=== PATIENT | female | born 1990 | race Caucasian/White ===

== ENCOUNTER 2020-07-02 19:23 | Emergency (ER) | payer OTHER, SELFPAY ==
[2020-07-02 19:25] VITALS: BP 132/93; PULSE 89; RESP 16; TEMP 36.3; O2SAT 100
--- NOTE | 2020-07-02 20:32 | ED.EXTPRO ---
HPI - Extremity Problem General Chief complaint: Extremity Problem,Nontraumatic Stated complaint: feet swelling Time Seen by Provider: 07/02/20 19:31 Source: patient Mode of arrival: ambulatory Limitations: no limitations History of Present Illness HPI Narrative: Patient is a 29-year-old female who presents with swelling to the bilateral feet patient noticed the swelling in the last 24 hours notes over the weekend she had been drinking and partying patient on arrival to emergency department denies any pain. Patient denies recent illness similar occurrence or URI symptoms or dyspnea. Patient on arrival to emergency department resting comfortably in the room. Related Data Allergies Allergy/AdvReac Type Severity Reaction Status Date / Time acetaminophen Allergy Intermediate rash Verified 09/22/19 11:49 amoxicillin [From Amoxil] Allergy Intermediate Rash Verified 09/22/19 11:49 hydrocodone Allergy Intermediate rash Verified 09/22/19 11:49 codeine Allergy Mild Rash Verified 09/22/19 11:49 Review of Systems Review of Systems: All systems reviewed & are unremarkable except as noted in HPI and below PMFSH Past Medical History Medical History demise Gestational diabetes MRSA (methicillin resistant staph aureus) culture positive Polyhydramnios hemorrhage Preeclampsia labor Torn ACL UTI (urinary tract infection) Social History Social History Smoking status: Former smoker Alcohol intake: current Substance use: unknown Additional occupation/education comments: AR MANAGER at [employer] Gender identity (if verbalized by the patient): Female Spiritual care concerns: No Exam Narrative: Exam Narrative: GENERAL: Well-appearing, well-nourished, and in no acute distress. HEAD: Normocephalic, atraumatic. EYES: PERRLA and EOMI. ENT: Nares clear, no rhinorrhea or epistaxis. Mucous membranes moist. NECK: Supple. No adenopathy or masses. No carotid bruits or JVD CHEST: Clear to auscultation. No respiratory distress. No wheezes rales or rhonchi HEART: Regular rate and rhythm. No murmur heard. Normal peripheral pulses. EXTREMITIES: Normal range of motion. 1+ edema to the dorsal surface of the bilateral feet no other swelling no tenderness of the extremities SKIN: Warm, dry, no rash. NEURO: No focal deficits. Alert and oriented x3. Neurovascularly intact. Capillary refill less than 2 seconds PSYCH: Normal mood and affect. Course Course Emergency Course: Patient in the room in no distress aware of case findings treatment plan and diagnosis agreeing to follow-up as directed or to return if symptoms worsen or concerns Vital Signs Vital signs: Vital Signs Temperature 97.3 F L 07/02/20 19:25 Pulse Rate 89 07/02/20 19:25 Respiratory Rate 16 07/02/20 19:25 Blood Pressure 132/93 H 07/02/20 19:25 Pulse Oximetry 100 07/02/20 19:25 Temperature 97.3 F L 07/02/20 19:25 Pulse Rate 89 07/02/20 19:25 Respiratory Rate 16 07/02/20 19:25 Blood Pressure 132/93 H 07/02/20 19:25 Pulse Oximetry 100 07/02/20 19:25 MDM - Extremity (Nontraumatic) MDM Narrative Medical decision making narrative: Patients injury or pain is consistent with musculoskeletal etiology. No signs of neurological or vascular compromise on exam. Compartments and tisues are soft without signs of compartment syndrome. Pain is felt appropriate for further evaluation on an outpatient basis. Patient with likely dependent edema. Patient will follow with primary care for further evaluation Discharge Plan Discharge Clinical Impression: Bilateral edema of lower extremity Patient Disposition: Home, Self-Care Condition: Stable Instructions: Antibiotic Form, Leg Edema (ED) Additional Instructions: Follow up with your primary care provider within 1-2 days. Go to ER for shortness of breath, difficulty breath
[2020-07-02 21:25] VITALS: BP 122/70; PULSE 70; RESP 18; O2SAT 99
== END 2020-07-02 21:27 | disposition home or self-care (01) ==
PROVIDERS: Emergency Provider Emergency Medicine; PCP Nurse Practitioner Family
DX: R60.0 Localized edema (principal); Z86.14 Personal history of Methicillin resistant Staphylococcus aureus infection; Z87.440 Personal history of urinary (tract) infections; Z87.891 Personal history of nicotine dependence
CPT/HCPCS: 99283

== ENCOUNTER 2020-07-19 09:35 | Outpatient (CLI) | payer OTHER, SELFPAY ==
--- NOTE | 2020-07-19 | ECG_ITS ---
Measurements Intervals [place] Rate: 66 P: 23 FL: 166 QRS: 68 QRSD: 84 T: 49 QT: 400 QTc: 421 Interpretive Statements SINUS RHYTHM NORMAL ECG Electronically Signed On 07-19-2020 11:06:47 CDT by Imer Ontiveros D.O.
--- NOTE | ~2020-07-19 | XR_ITS ---
EXAMINATION: XR chest 2V 07/19/2020 11:13 INDICATION: Morbid obesity. Preop gastric bypass surgery. PROCEDURE: 2 view chest COMPARISON: Comparison to multiple prior studies sequentially, with oldest reviewed study dated 08/01. FINDINGS: The lungs are clear. The cardiomediastinal silhouette is within normal limits. There are no pleural effusions. There is no pneumothorax suspected. IMPRESSION: 1: NO ACUTE CARDIOPULMONARY DISEASE. Reviewed, dictated and finalized at location B.
[2020-07-19 10:30] LABS: Basophils Percent Auto 0.6 % (0.2-1.2); Eosinophils Absolute Auto 0.1 K/mm3 (0-0.3); Eosinophils Percent Auto 0.7 % (0-4.4); Hematocrit 43.6 % (37.0-47.0); Hemoglobin 14.1 g/dL (12.0-15.0); Immature Granulocyte Absolute 0.02 K/mm3 (0.00-0.031); Immature Granulocyte Percent A 0.3 % (0-0.5); Lymphocytes Absolute Auto 2.58 K/mm3 (0.9-3.2); Lymphocytes Percent Auto 38.5 % (18.3-44.2); Mean Corpuscular HGB Conc 32.3 g/dl (32-36); Mean Corpuscular Hemoglobin 30.3 pg (26-34); Mean Corpuscular Volume 93.6 fl (80-100); Mean Platelet Volume 10.7 fl (7.4-10.4); Monocytes Absolute Auto 0.4 K/mm3 (0.1-0.6); Monocytes Percent Auto 6.1 % (2.6-8.5); Neutrophils Absolute Auto 3.6 K/mm3 (1.3-6.7); Neutrophils Percent Auto 53.8 % (45.5-73.1); Platelet Count Result 219 k/mm3 (150-375); Red Blood Count 4.66 M/mm3 (4.2-5.4); White Blood Count 6.7 K/mm3 (4.5-10.0)
[2020-07-19 10:38] LABS: INR 0.9; Partial Thromboplastin Time 26.9 SECONDS (22.3-36.8); Prothrombin Time 11.7 Seconds (11.1-14.7)
[2020-07-19 10:45] LABS: Alanine Aminotransferase 31 U/L (4-35); Albumin Level 3.9 g/dL (3.5-5.1); Alkaline Phosphatase 73 U/L (38-126); Anion Gap 5 mmol/L (8-16); Aspartate Amino Transferase 23 U/L (14-36); Bilirubin,Total 0.7 mg/dL (0.2-1.3); Blood Urea Nitrogen 14 mg/dL (7-17); Carbon Dioxide 26 mmol/L (22-30); Chloride 105 mmol/L (98-107); Cholesterol 155 mg/dL (0-200); Estimated Glomerular Filt Rate > 60; Glucose 102 mg/dL (65-105); HDL Direct 42 mg/dL; Magnesium 1.9 mg/dL (1.6-2.3); Sodium 136 mmol/L (137-145); Triglycerides 66 mg/dL (<150)
[2020-07-19 10:49] LABS: Hemoglobin A1C 4.8 % (<5.7)
[2020-07-19 10:52] LABS: LDL Cholesterol Direct 93 mg/dL
[2020-07-19 10:58] LABS: Parathyroid Intact 55.3 pg/mL (7.5-53.5)
[2020-07-19 11:02] LABS: Potassium 4.3 mmol/L (3.4-5.0)
[2020-07-19 11:12] LABS: Thyroid Stimulating Hormone 0.796 uIU/mL (0.465-4.680)
[2020-07-19 11:23] LABS: Iron 58 ug/dL (37-170)
[2020-07-19 11:33] LABS: Percent Iron Saturation 16 % (20-50)
[2020-07-19 11:47] LABS: Folic Acid 4.6 ng/mL (2.76->20)
[2020-07-19 11:56] LABS: Vitamin D 25 Hydroxy 26.9 ng/mL
[2020-07-25 09:57] LABS: Vitamin B1 8 nmol/L (8-30)
== END 2020-07-19 09:36 | disposition home or self-care (01) ==
PROVIDERS: PCP Nurse Practitioner Family
DX: Z01.818 Encounter for other preprocedural examination (principal); E66.01 Morbid (severe) obesity due to excess calories
CPT/HCPCS: 36415; 71046; 80053; 80061; 82306; 82607; 82728; 82746; 83036; 83540; 83550; 83735; 83970; 84425; 84443; 85025; 85610; 85730; 93005

== ENCOUNTER 2020-10-21 07:58 | Emergency (ER) | payer OTHER, SELFPAY ==
--- NOTE | ~2020-10-21 | XR_ITS ---
EXAMINATION: XR finger 5th RT min 2V INDICATION: Right fifth finger pain TECHNIQUE: Four views of the right fifth finger are obtained. COMPARISON: None available FINDINGS: There is no fracture, dislocation, or subluxation. The bones, soft tissues, and joint space s are normal. No radiopaque foreign body is identified. There is fingernail is partially fr om the nailbed. IMPRESSION: 1. No acute osseous abnormality. Reviewed, dictated and finalized at location A. AGE INSPECTOR
[2020-10-21 08:06] VITALS: BP 119/90; PULSE 88; RESP 17; TEMP 36.7; O2SAT 98
--- NOTE | 2020-10-21 08:37 | ED.GENADULT ---
HPI - General Adult General Chief complaint: Extremity Injury, Upper Stated complaint: R 5th digit injury Time Seen by Provider: 10/21/20 08:21 History of Present Illness HPI narrative: Patient is a 30-year-old female who presents ER with right fifth finger pain. She thinks she got her acrylic fingernail caught in her bed sheet and it the nail from her finger. She had some bleeding and is having some pain. She does not have any acetone at home to remove her nail and is unsure if there is additional injury. Tetanus up-to-date. Related Data Allergies Allergy/AdvReac Type Severity Reaction Status Date / Time acetaminophen Allergy Intermediate rash Verified 10/21/20 08:11 amoxicillin [From Amoxil] Allergy Intermediate Rash Verified 10/21/20 08:11 hydrocodone Allergy Intermediate rash Verified 10/21/20 08:11 codeine Allergy Mild Rash Verified 10/21/20 08:11 Review of Systems Musculoskeletal: Comments: right 5th fingernail pain/bleeding. 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 HEAD: Normocephalic, atraumatic. EXTREMITIES: Normal range of motion. No edema. NEURO: Alert and oriented x3. Course Course Emergency Course: Unable to remove the acrylic nails with fingernail welsh remover or with prolonged warm water soaks. Patient reports typically they have to be ground off. Recommend she see her radiology technician to have them removed if causing her any issues. A Band-Aid was applied to help stabilize the nail which does not seem to loose. Vital Signs Vital signs: Vital Signs Temperature 98.0 F 10/21/20 08:06 Pulse Rate 88 10/21/20 08:06 Respiratory Rate 17 10/21/20 08:06 Blood Pressure 119/90 10/21/20 08:06 Pulse Oximetry 98 10/21/20 08:06 Temperature 98.0 F 10/21/20 08:06 Pulse Rate 88 10/21/20 08:06 Respiratory Rate 17 10/21/20 08:06 Blood Pressure 119/90 10/21/20 08:06 Pulse Oximetry 98 10/21/20 08:06 Medical Decision Making Vital Signs Vital Signs: Vital Signs Temperature 98.0 F 10/21/20 08:06 Pulse Rate 88 10/21/20 08:06 Respiratory Rate 17 10/21/20 08:06 Blood Pressure 119/90 10/21/20 08:06 Pulse Oximetry 98 10/21/20 08:06 Temperature 98.0 F 10/21/20 08:06 Pulse Rate 88 10/21/20 08:06 Respiratory Rate 17 10/21/20 08:06 Blood Pressure 119/90 10/21/20 08:06 Pulse Oximetry 98 10/21/20 08:06 Imaging Data Radiologist's impression: ITS Impressions Finger X-Ray 10/21/20 08:25 IMPRESSION: 1. No acute osseous abnormality. Discharge Plan Discharge Clinical Impression: Injury of nail Patient Disposition: Home, Self-Care Condition: Stable Additional Instructions: Return the ER if your finger becomes red and hot, is draining pus, or you have additional injury. Prescriptions: No Action fluconazole 150 mg tablet 150 mg PO ONCE Qty: 1 RF: 0 Follow-up/Referrals: Korina,Elda Allen METEOROLOGICAL AIDE-BC [Primary Care Provider] -
[2020-10-21 09:17] VITALS: BP 134/85; PULSE 85; RESP 15; O2SAT 96
== END 2020-10-21 09:18 | disposition home or self-care (01) ==
PROVIDERS: Emergency Provider Emergency Medicine; PCP Nurse Practitioner Family
DX: S69.91XA Unspecified injury of right wrist, hand and finger(s), initial encounter (principal); Z86.14 Personal history of Methicillin resistant Staphylococcus aureus infection; Z87.440 Personal history of urinary (tract) infections; Z87.891 Personal history of nicotine dependence; X58.XXXA Exposure to other specified factors, initial encounter
CPT/HCPCS: 73140; 99283